=== PATIENT | male | born 1970 | race Caucasian/White ===

== ENCOUNTER 2023-06-17 11:34 | Day surgery (SDC) | payer BC ==
[~2023-06-17] VITALS: Ht 188 cm; Wt 67.7 kg
[~2023-06-17 11:34] MED LIST: NS 1,000 ML IV ONE; VARE1TAB2
[2023-06-17] MEDS ORDERED: fentaNYL 100 MCG/2 ML INJECTION As Ordered ONE (14:03)
[2023-06-17] MEDS ORDERED: propofoL 200 MG/20 ML VIAL As Ordered ONE ×2 (14:06→14:39)
[2023-06-17 15:22] VITALS: BP 115/66; TEMP 97; O2SAT 99
== END 2023-06-17 15:24 | disposition home or self-care (01) ==
LOC: M OPP 11:34
PROVIDERS: ATTEND Internal Medicine Gastroenterology
DX: K64.0 First degree hemorrhoids (principal); D12.6 Benign neoplasm of colon, unspecified; K63.5 Polyp of colon; K57.30 Diverticulosis of large intestine without perforation or abscess without bleeding; R19.5 Other fecal abnormalities; F17.200 Nicotine dependence, unspecified, uncomplicated
CPT/HCPCS: 45385; 88305; J3010